=== PATIENT | male | born 1985 | race Caucasian/White ===

== ENCOUNTER 2018-03-23 23:30 | Emergency (ER) | payer OTHER ==
[~2018-03-23] VITALS: Ht 170.2 cm; Wt 89.8 kg
[2018-03-23 23:43] VITALS: BP 143/90
--- NOTE | 2018-03-23 23:47 | NUR ---
TO LOBBY A/W BED, MODESTO CALIX, YVAN NOTED
--- NOTE | 2018-03-24 00:06 | NUR ---
PATIENT PRESENTS TO ED WITH CELLULITIS X1 WEEK. PATIENT STATES PUTTING HOT COMPRESSES ON HIS NECK FOR TWO DAYS AND "IT GOT BIGGER AND STARTED LEAKING YELLOW ROBE STUFF" PATIENT DENIES ANY ODOR. PATIENT HAS A HISTORY OD DIABETES AND STATES HE IS NOT COMPLAINT WITH HIS MEDICATIONS. PATIENT STATES HE IS "SCARED" TO GO TO THE DR. PATIENT STATES HE HAS BEEN OUT OF HIS MEDICATION FOR 2 MONTHS. PT DENIES N/V/D; SKIN IS PINK/WARM/DRY; AAOX4 WITH EVEN AND STEADY GAIT; LUNGS CLEAR BL; HR EVEN AND REGULAR; PT DENIES ANY FEVER, CP, SOB, OR COUGH AT THIS TIME; PATIENT STATES PAIN OF 0/10 AT THIS TIME; VSS; PATIENT POSITIONED FOR COMFORT; HOB ELEVATED; BEDRAILS UP X1; BED DOWN. ER MD MADE AWARE OF PT STATUS.
--- NOTE | 2018-03-24 00:12 | NUR ---
Dr. Gould evaluating patient at bedside.
[2018-03-24] MEDS ORDERED: LIDOCAINE 2% 1000 MG/50 ML VIAL INJ ONE (00:35)
[2018-03-24 01:44] VITALS: BP 143/90
--- NOTE | 2018-03-24 01:44 | NUR ---
Patient discharged with v/s stable. Written and verbal after care instructions given and explained. Patient alert, oriented and verbalized understanding of instructions. Ambulatory with steady gait. All questions addressed prior to discharge. ID band removed. Patient advised to follow up with PMD. Rx of METFORMIN, MOTRIN, CLINDAMYCIN given. Patient educated on indication of medication including possible reaction and side effects. Opportunity to ask questions provided and answered.
== END 2018-03-24 01:44 | disposition home or self-care (01) ==
LOC: MED 23:30
DX: L02.11 Cutaneous abscess of neck (principal); R03.0 Elevated blood-pressure reading, without diagnosis of hypertension; E11.9 Type 2 diabetes mellitus without complications
CPT/HCPCS: 10060; 99283; J2001

== ENCOUNTER 2018-03-26 09:36 | Emergency (ER) | payer OTHER ==
[~2018-03-26] VITALS: Ht 170.2 cm; Wt 86.6 kg
[2018-03-26 09:42] VITALS: BP 142/95
--- NOTE | 2018-03-26 09:48 | NUR ---
Patient ambulated to bed 4. RN evaluating patient at bedside.
--- NOTE | 2018-03-26 09:50 | NUR ---
Report given to Ulices PIERCE.
--- NOTE | 2018-03-26 09:54 | NUR ---
PATIENT PRESENTS TO ED FOR WOUND CHECK OF ABCCESS THAT WAS DRAINED AND PACKED ON Wednesday03/23/18. AREA MEASURES LENGTH 9CM BY WIDTH 12CM. SITE APPEARS RED AND SWOLLEN. PATIENT DENIES PAIN. DENIES N/V/D; SKIN IS PINK/WARM/DRY; AAOX4 WITH EVEN AND STEADY GAIT; PT DENIES ANY FEVER, CP, SOB, OR COUGH AT THIS TIME; VSS; PATIENT SITTING UP IN CHAIR; ER MD MADE AWARE OF PT STATUS.
[2018-03-26] MEDS ORDERED: CLINDAMYCIN 600 MG/4 ML VIAL IM ONE (10:15)
[2018-03-26] MEDS ORDERED: NEOMYCIN/POLYMYXIN/BACITRACIN 0.9 GM/1 PKT TP ONE (10:15)
[2018-03-26 10:38] VITALS: BP 139/89
--- NOTE | 2018-03-26 10:41 | NUR ---
Patient discharged with v/s stable. Written and verbal after care instructions given and explained. Patient verbalized understanding. Ambulatory with steady gait. All questions addressed prior to discharge. Advised to follow up with PMD.
== END 2018-03-26 10:41 | disposition home or self-care (01) ==
LOC: MED 09:36
DX: Z48.01 Encounter for change or removal of surgical wound dressing (principal); E11.9 Type 2 diabetes mellitus without complications
CPT/HCPCS: 96372; 99283; J3490

== ENCOUNTER 2018-08-17 09:28 | Emergency (ER) | payer OTHER ==
[~2018-08-17] VITALS: Ht 175.3 cm; Wt 87.7 kg
[2018-08-17 09:47] VITALS: BP 125/96
[2018-08-17] MEDS ORDERED: NACL 0.9% 1,000 ML IV SCH (10:05)
[2018-08-17] MEDS ORDERED: FAMOTIDINE 20 MG/2 ML VIAL IVP ONE (10:05)
[2018-08-17] MEDS ORDERED: KETOROLAC 30 MG/ML VIAL IVP ONE (10:05)
[2018-08-17] MEDS ORDERED: ONDANSETRON 4 MG/2 ML VIAL IVP ONE (10:05)
[2018-08-17 11:30] LABS: BASOPHILS # (AUTO) 0.1 K/uL (0.00-0.22); BASOPHILS % (AUTO) 0.5 % (0.0-2.0); EOSINOPHILS % (AUTO) 0.2 % (0.0-4.0); HEMATOCRIT 42.2 % (36-52); HEMOGLOBIN 14.4 g/dL (12.0-18.0); LYMPHOCYTES # (AUTO) 0.9 K/uL (2.0-11.5); LYMPHOCYTES % (AUTO) 6.4 % (20.5-51.1); MEAN CORPUSCULAR HEMOGLOBIN 31 pg (27-31); MEAN CORPUSCULAR HGB CONC 34 g/dL (33-37); MEAN CORPUSCULAR VOLUME 89.9 fL (80-94); MONOCYTES # (AUTO) 1.5 K/uL (0.8-1.0); MONOCYTES % (AUTO) 11.2 % (1.7-9.3); NEUTROPHILS # (AUTO) 11.2 K/uL (1.8-7.7); NEUTROPHILS % (AUTO) 81.7 % (42.2-75.2); PLATELET COUNT (AUTO) 165 K/uL (140-450); RED BLOOD CELL COUNT(AUTO) 4.69 MIL/uL (4.20-6.10); RED CELL DISTRIBUTION WIDTH 12.1 % (11.6-13.7); WHITE BLOOD COUNT (AUTO) 13.7 K/uL (4.8-10.8)
[2018-08-17 11:42] LABS: ANION GAP 13.5 (8-16); CARBON DIOXIDE 26.8 mmol/L (21-32); CREATININE 0.7 mg/dL (0.7-1.3); POTASSIUM 4.3 mmol/L (3.5-5.1)
[2018-08-17 11:49] LABS: ALBUMIN 3.4 g/dL (3.4-5.0); TOTAL BILIRUBIN 1.2 mg/dL (0.0-1.0)
[2018-08-17 12:18] VITALS: BP 127/89
[2018-08-17 14:26] LABS: APPEARANCE,URINE CLEAR (CLEAR); BILIRUBIN,URINE NEGATIVE (NEGATIVE); BLOOD, URINE 1+ (NEGATIVE); COLOR,URINE AMBER (YELLOW); LEUKOCYTE ESTERASE ,URINE NEGATIVE (NEGATIVE); NITRITE, URINE NEGATIVE (NEGATIVE); UGLUCOSE 3+ (NEGATIVE)
== END 2018-08-17 12:18 | disposition home or self-care (01) ==
LOC: MED 09:28
DX: K80.80 Other cholelithiasis without obstruction (principal); E11.9 Type 2 diabetes mellitus without complications
CPT/HCPCS: 36415; 74018; 76705; 80053; 81003; 83690; 85025; 96374; 96375; 99285; J1885; J2405; J3490; Q0092; J7030